=== PATIENT | female | born 1965 ===

== ENCOUNTER 2017-12-08 19:03 | Emergency (ER) | payer MEDICAID ==
[2017-12-08 19:04] VITALS: BMI 43.6
[2017-12-08 19:22] VITALS: RESP 18
--- NOTE | 2017-12-08 20:04 | C.PDOC ---
History Of Present Illness Patient reports that her left pinky finger got caught in a carriage and sustained a crush injury 1 hour [employer]. The patient denies other injuries, numbness , weakness. Time Seen by Provider: 12/08/17 19:34 Chief Complaint (Nursing): Upper Extremity Problem/Injury History Per: Patient History/Exam Limitations: no limitations Onset/Duration Of Symptoms: Hrs (1) Current Symptoms Are (Timing): Still Present Quality: "Pain" Additional History Per: Patient Past Medical History Reviewed: Historical Data, Nursing Documentation, Vital Signs Vital Signs: Last Vital Signs Temp 98.0 F 12/08/17 21:18 Pulse 65 12/08/17 21:18 Resp 18 12/08/17 21:18 BP 117/60 12/08/17 21:18 Pulse Ox 99 12/08/17 21:19 - Medical History PMH: Arthritis (RA), Cardia Arrhythmia, HTN, Hypercholesterolemia, Hyperthyroidism, Hypothyroidism, Rheumatoid Arthritis (on Methotrexate and prednisone), TIA (2011) Denies: Chronic Kidney Disease Surgical History: No Surg Hx - [facility] Procedures ESOPHAGOGASTRODUODENOSCOPY [EGD] W/CLOSED BIOPSY (05/29/14) Family History: States: Unknown Family Hx - Social History Hx Tobacco Use: No Hx Alcohol Use: Yes Hx Substance Use: No - Immunization History Hx Tetanus Toxoid Vaccination: No Hx Influenza Vaccination: No Hx Pneumococcal Vaccination: No Review Of Systems Musculoskeletal: Positive for: Other (left pinky finger pain ) Neurological: Negative for: Weakness, Numbness Physical Exam - Physical Exam Appears: Non-toxic, No Acute Distress Skin: Normal Color, Warm, Dry Extremity: Capillary Refill (less than 2 seconds ), Other (moderate swelling and tenderness to left 5th DIP joint ) Pulses: Left Radial: Normal, Right Radial: Normal Neurological/Psych: Oriented x3, Normal Speech, Normal Cognition ED Course And Treatment O2 Sat by Pulse Oximetry: 99 (on RA) Pulse Ox Interpretation: Normal Medical Decision Making Medical Decision Making: Progress: left hand 5th digit XR ordered and reviewed. Tylenol PO given. Xrays show possible mallet finger. Finger was placed in splint by me. Disposition - Disposition Referrals: Sukumar Guzman MD [Staff Provider] - Disposition: HOME/ ROUTINE Disposition Time: 21:02 Condition: STABLE Additional Instructions: Follow up with the Hand surgeon within 1-2 days. return if worsened. 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 - Scribe Statement The provider has reviewed the documentation as recorded by the Scribe (Evangelina Tomlinson) All medical record entries made by the Scribe were at my direction and personally dictated by me. I have reviewed the chart and agree that the record accurately reflects my personal performance of the history, physical exam, medical decision making, and the department course for this patient. I have also personally directed, reviewed, and agree with the discharge instructions and disposition.
[2017-12-08 21:19] VITALS: BP 117/60; PULSE 65; TEMP 98; O2SAT 99
--- NOTE | 2017-12-09 08:11 | RAD ---
Left hand 5th digit three views History: Crush injury. Comparison: None available. Findings: Flexion deformity at the 5th DIP joint space. This raises concern for possible mallet finger. Correlation with MRI may be helpful if clinically indicated. No evidence of acute displaced fracture or dislocation at this level. Remainder of the visualized osseous structures appear grossly preserved. Impression: Flexion deformity at the 5th DIP joint space. This raises concern for possible mallet finger. Correlation with MRI may be helpful if clinically indicated.
== END 2017-12-08 21:17 | disposition home or self-care (01) ==
LOC: C.ER 19:03 → SUPCPDRO 19:03 → C.ER 21:17
DX: M20.012 Mallet finger of left finger(s) (principal)

== ENCOUNTER 2018-06-20 10:51 | Outpatient (CLI) | payer MEDICAID | END 2018-06-20 10:52 | disposition home or self-care (01) | LOC: C.MAMMO 10:52 | DX: Z12.31 Encounter for screening mammogram for malignant neoplasm of breast (principal) ==